=== PATIENT | male | born 1960 | race Caucasian/White ===

== ENCOUNTER 2024-01-22 21:25 | Emergency (ER) | payer BC, OTHER ==
--- NOTE | 2024-01-22 21:28 | ERPHSYRPT ---
- History of Present Illness Time Seen by Provider: 01/22/24 21:27 Historian: patient Exam Limitations: no limitations Physician History: The patient, with a history of multiple heart attacks, colon cancer, COPD, emphysema, and asbestosis, presents with chest pain of 17 days duration. The pain, described as 'lightning,' radiates from the jaw, through the shoulder blade, and down the arm. The pain has worsened today, waking him from sleep. The pain is located around the heart and increases with movement. He also reports nausea and a history of lightheadedness leading to falls. The patient has a history of hypertension and is on medication for high blood pressure and acid reflux. He also reports a history of kidney stones, but denies chronic kidney disease. The patient has a significant smoking history, having smoked three and a half packs a day until quitting approximately five years ago. He now occasionally uses a vaporizer and smokes cigars without inhaling. 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 He has had multiple surgeries, including two hernia repairs, neck surgery following a fall, and arm surgery. He was advised to have open-heart surgery following his last heart attack but declined. He has been told he has a leaky heart valve. The patient also reports a history of [place] spotted fever. Timing/Duration: day(s) (17) Activities at Onset: rest Quality: pressure, sharpness, stabbing Location: substernal Chest Pain Radiation: jaw, back Severity of Pain-Max: moderate Severity of Pain-Current: moderate Modifying Factors: Improves With: nothing. Worsens With: exertion Associated Symptoms: nausea, palpitations, heartburn, shortness of breath, No vomiting, No abdominal pain, No cough Prior Chest Pain/Cardiac Workup: cardiac cath Nitro Today/Relief: no nitro taken today Aspirin Treatment Today: 81 mg x 4, provided by EMS Allergies/Adverse Reactions: Penicillins Allergy (Severe, Verified 01/22/24 21:44) Difficulty Breathing Home Medications: No Reportable Medications [No Reported Medications] 01/22/24 [History] Hx Tetanus, Diphtheria Vaccination/Date Given: Yes Hx Influenza Vaccination/Date Given: Yes Hx Pneumococcal Vaccination/Date Given: Yes - Review of Systems All Other Systems: Reviewed and Negative - Past Medical History Pertinent Past Medical History: Yes Neurological History: No Pertinent History ENT History: No Pertinent History Cardiac History: Angina, Myocardial Infarction (ND) Respiratory History: No Pertinent History Endocrine Medical History: No Pertinent History Musculoskeletal History: No Pertinent History GI Medical History: No Pertinent History History: No Pertinent History Psycho-Social History: No Pertinent History Male Reproductive Disorders: No Pertinent History - Past Surgical History Past Surgical History: Yes Neuro Surgical History: No Pertinent History Cardiac: No Pertinent History Respiratory: No Pertinent History Gastrointestinal: No Pertinent History Genitourinary: No Pertinent History Musculoskeletal: Orthopedic Surgery Male Surgical History: No Pertinent History Other Surgical History: NECK SURGERY - Social History Smoking Status: Current every day smoker How long have you smoked: 40 Exposure to second hand smoke: No Drug Use: none Patient Lives Alone: No - Nursing Vital Signs Nursing Vital Signs: Initial Vital Signs Temperature 98.5 F 01/22/24 21:27 Pulse Rate 81 01/22/24 21:27 Respiratory Rate 18 01/22/24 21:27 Blood Pressure 101/62 01/22/24 21:27 O2 Sat by Pulse Oximetry 96 01/22/24 21:27 Pain Scale Pain Intensity 0 - Physical Exam General Appearance: no apparent distress Eye Exam: eyes nml inspection Ears, Nose, Throat Exam: normal ENT inspection Neck Exam: normal inspection, supple, full range of motion Respiratory Exam: normal breath sounds, lungs clear, airway intact, No chest tenderness, No respiratory distress Cardiovascular Exam: regular rate/rhythm, capillary refill <2 sec, No edema Gastrointestinal/Abdomen Exam: soft, normal bowel sounds, No tenderness, No distention, No mass, No guarding, No rebound Back Exam: normal inspection, No CVA tenderness Extremity Exam: normal inspection, No swelling, No tenderness Neurologic Exam: alert, oriented x 3, cooperative Skin Exam: normal color, warm, dry, No rash SpO2 Interpretation: normal O2 Delivery: Room Air - Course Nursing assessment & vital signs reviewed: Yes EKG Interpreted by Me: RATE (62), Sinus Rhythm, NORMAL AXIS, NORMAL INTERVALS, NORMAL QRS, NORMAL ST-T, Other Ordered Tests: Active Orders 24 hr Category Date Time Status Hazardous Material Specialist STAT Care 01/22/24 21:34 Active EKG-ER Only STAT Care 01/22/24 21:34 Active IV Insertion STAT Care 01/22/24 21:34 Active CTA CHEST W AND/OR WO [CT] Stat Exams 01/22/24 21:35 Completed CBC W DIFF Stat Lab 01/22/24 21:55 Completed CMP Stat Lab 01/22/24 21:55 Completed TROPONIN Q4H Lab 01/22/24 21:55 Completed TROPONIN Q4H Lab 01/23/24 00:34 Completed Urine Triage Profile Stat Lab 01/23/24 00:43 Completed Medication Summary Discontinued Medications Generic Name Dose Route Start Last Admin Trade Name Elizabeth PRN Reason Stop Dose Admin Sodium Chloride 1,000 mls @ 999 mls/hr 01/22/24 21:34 01/22/24 22:00 Sodium Chloride 0.9% 1000 Ml IV 01/22/24 22:34 999 mls/hr .Q1H1M STA Administration Sodium Chloride Confirm 01/22/24 21:59 Sodium Chloride 0.9% 1000 Ml Administered 01/22/24 22:00 Dose 1,000 mls @ ud .ROUTE .STK-MED ONE Lab/Rad Data: Laboratory Result Diagrams 01/22/24 21:55 01/22/24 21:55 Laboratory Results 01/23/24 01/23/24 01/22/24 Range/Units 00:43 00:34 21:55 WBC (4.23-9.07) x10^3/uL RBC (4.63-6.08) x10^6/uL Hgb (13.7-17.5) g/dL Hct (40.1-51.0) % MCV (79.0-92.2) fL MCH (25.7-32.2) pg MCHC (32.3-36.5) g/dL RDW (11.6-14.4) % Plt Count (163-337) x10^3/uL MPV (9.4-12.4) fL Gran % (34.0-67.9) % Immature Gran % (Auto) (0.001-0.429) % Nucleat RBC Rel Count (0.00-0.2) % Eos # (Auto) (0.04-0.54) x10^3/uL Immature Gran # (Auto) (0.001-0.031) x10^3u/L Absolute Lymphs (auto) (1.32-3.57) x10^3/uL Absolute Monos (auto) (0.30-0.82) x10^3/uL Absolute Nucleated RBC (0.00-0.012) x10^3u/L Lymphocytes % (21.8-53.1) % Monocytes % (5.3-12.2) % Eosinophils % (0.8-7.0) % Basophils % (0.2-1.2) % Absolute Granulocytes (1.78-5.38) x10^3/uL Basophils # (0.01-0.08) x10^3/uL Sodium (135-145) mmol/L Potassium (3.5-5.1) mmol/L Chloride (98-107) mmol/L Carbon Dioxide (22-30) mmol/L Anion Gap (5-15) MEQ/L BUN (9-20) mg/dL Creatinine (0.66-1.25) mg/dL Estimated GFR ML/MIN Glucose (74-106) mg/dL Calcium (8.4-10.2) mg/dL Total Bilirubin (0.2-1.3) mg/dL AST (17-59) U/L ALT (0-50) U/L Alkaline Phosphatase (38-126) U/L Troponin I < 0.012 < 0.012 (0.000-0.033) ng/mL Serum Total Protein (6.3-8.2) g/dL Albumin (3.5-5.0) g/dL Urine Opiates Level NEGATIVE (NEGATIVE) Ur Methadone NEGATIVE (NEGATIVE) Urine Barbiturates NEGATIVE (NEGATIVE) Ur Phencyclidine (PCP) NEGATIVE (NEGATIVE) Urine Amphetamine NEGATIVE (NEGATIVE) U Benzodiazepine Level NEGATIVE (NEGATIVE) Urine Cocaine NEGATIVE (NEGATIVE) Urine Marijuana (THC) NEGATIVE (NEGATIVE) 01/22/24 01/22/24 Range/Units 21:55 21:55 WBC 8.0 (4.23-9.07) x10^3/uL RBC 3.96 L (4.63-6.08) x10^6/uL Hgb 13.0 L (13.7-17.5) g/dL Hct 38.3 L (40.1-51.0) % MCV 96.7 H (79.0-92.2) fL MCH 32.8 H (25.7-32.2) pg MCHC 33.9 (32.3-36.5) g/dL RDW 12.7 (11.6-14.4) % Plt Count 295 (163-337) x10^3/uL MPV 9.1 L (9.4-12.4) fL Gran % 59.9 (34.0-67.9) % Immature Gran % (Auto) 0.6 H (0.001-0.429) % Nucleat RBC Rel Count 0.0 (0.00-0.2) % Eos # (Auto) 0.15 (0.04-0.54) x10^3/uL Immature Gran # (Auto) 0.05 H (0.001-0.031) x10^3u/L Absolute Lymphs (auto) 2.00 (1.32-3.57) x10^3/uL Absolute Monos (auto) 0.99 H (0.30-0.82) x10^3/uL Absolute Nucleated RBC 0.00 (0.00-0.012) x10^3u/L Lymphocytes % 24.9 (21.8-53.1) % Monocytes % 12.3 H (5.3-12.2) % Eosinophils % 1.9 (0.8-7.0) % Basophils % 0.4 (0.2-1.2) % Absolute Granulocytes 4.80 (1.78-5.38) x10^3/uL Basophils # 0.03 (0.01-0.08) x10^3/uL Sodium 145 (135-145) mmol/L Potassium 4.6 (3.5-5.1) mmol/L Chloride 107 (98-107) mmol/L Carbon Dioxide 31 H (22-30) mmol/L Anion Gap 11.1 (5-15) MEQ/L BUN 21 H (9-20) mg/dL Creatinine 0.95 (0.66-1.25) mg/dL Estimated GFR 88.8 ML/MIN Glucose 86 (74-106) mg/dL Calcium 9.4 (8.4-10.2) mg/dL Total Bilirubin 0.30 (0.2-1.3) mg/dL AST 23 (17-59) U/L ALT 26 (0-50) U/L Alkaline Phosphatase 84 (38-126) U/L Troponin I (0.000-0.033) ng/mL Serum Total Protein 6.3 (6.3-8.2) g/dL Albumin 3.7 (3.5-5.0) g/dL Urine Opiates Level (NEGATIVE) Ur Methadone (NEGATIVE) Urine Barbiturates (NEGATIVE) Ur Phencyclidine (PCP) (NEGATIVE) Urine Amphetamine (NEGATIVE) U Benzodiazepine Level (NEGATIVE) Urine Cocaine (NEGATIVE) Urine Marijuana (THC) (NEGATIVE) - Progress Progress: improved Air Movement: good Progress Note: Chest Pain New onset of chest pain radiating to the jaw, left shoulder, and arm. Pain is described as sharp and stabbing, with an ache around the heart. Pain is worse with movement and woke the patient from sleep. History of multiple heart attacks, the most recent being 20 years ago. Initial EKG is normal. -Order labs to rule out acute coronary syndrome. -Consider further cardiac workup based on lab results. -CTA chest to r/o aortic dissection COPD/Emphysema Chronic condition, no new symptoms reported. -Continue current management. Hypertension Chronic condition, currently managed with an unspecified antihypertensive medication. -Continue current management. Gastroesophageal Reflux Disease Chronic condition, currently managed with Prilosec. -Continue current management. Chronic Kidney Stones History of recurrent kidney stones, no acute symptoms reported. -Continue current management. General Health Maintenance -Update tetanus vaccine as needed. -Discuss benefits of flu and pneumonia vaccines. -Discuss benefits of COVID-19 vaccine. 01/23/24 01:19 CTA chest neg Troponin neg x 2 Lab evaluation unremarkable Cardiac cause of chest r/o, d/c home with patient f/u. Blood Culture(s) Obtained: No Antibiotics given: No Counseled pt/family regarding: lab results, diagnosis, need for follow-up, rad results Medical Desision Making - Diagnostic Testing Diagnostic test were ordered, analyzed, and reviewed by me: Yes Radiological Interpretation: Interpreted by me, Reviewed by me, Teleradiologist Report - Departure Departure Disposition: Home Clinical Impression: Chest pain Condition: Good Critical Care Time: No Referrals: DOCTOR,NO FAMILY [Primary Care Provider] - Follow up/PCP as directed Instructions: Chest Pain (DC)
[2024-01-22 21:29] VITALS: TEMP 98.5
[2024-01-22] MEDS ORDERED: Sodium Chloride 0.9% 1000 ML 1,000 ML ONE (21:59)
[2024-01-22] MEDS: Sodium Chloride 0.9% 1000 ML 1,000 ML IV STA (22:00)
[2024-01-22 22:15] LABS: BASOPHIL % 0.4 % (0.2-1.2); Basophil (Absolute #) 0.03 x10^3/uL (0.01-0.08); Eosinophil % 1.9 % (0.8-7.0); Eosinophil (Absolute #) 0.15 x10^3/uL (0.04-0.54); Hematocrit 38.3 % (40.1-51.0); IMMATURE GRAN # 0.05 x10^3u/L (0.001-0.031); IMMATURE GRAN % 0.6 % (0.001-0.429); Lymphocytes % 24.9 % (21.8-53.1); Mean Cell Volume 96.7 fL (79.0-92.2); Mean Corpuscular Hemoglobin 32.8 pg (25.7-32.2); Mean Corpuscular Hgb Concent. 33.9 g/dL (32.3-36.5); Mean Platelet Volume 9.1 fL (9.4-12.4); Monocyte (Absolute #) 0.99 x10^3/uL (0.30-0.82); Monocytes % 12.3 % (5.3-12.2); Neutrophil % 59.9 % (34.0-67.9); Platelet Count 295 x10^3/uL (163-337); Red Blood Count 3.96 x10^6/uL (4.63-6.08); Red Cell Distribution Width 12.7 % (11.6-14.4)
[2024-01-22 22:52] LABS: ALBUMIN 3.7 g/dL (3.5-5.0); ANION GAP 11.1 MEQ/L (5-15); BILIRUBIN,TOTAL 0.3 mg/dL (0.2-1.3); Calcium 9.4 mg/dL (8.4-10.2); Creatinine 1 0.95 mg/dL (0.66-1.25); EST GLOMERULAR FILTRATION RATE 88.8 ML/MIN; Potassium 4.6 mmol/L (3.5-5.1); Total Protein 6.3 g/dL (6.3-8.2)
--- NOTE | 2024-01-23 00:12 | XRAY ---
CLINICAL HISTORY: chest pain COMPARISON: None. TECHNIQUE: Contiguous 3.[address] angiographic images of the chest were acquired with the administration of intravenous contrast. Coronal and sagittal reconstructions were obtained. 80 cc [id number] was administered for post-contrast images. One of these 3D techniques was utilized: Maximum Intensity Pixel (MIP), 3D Reconstructed Images, Volume Rendered Images, Surface Shaded Rendering. One of the following dose reduction techniques were utilized for this exam: Automated exposure control, adjustment of the mA and/or kV according to patient size, and use of iterative reconstruction. CTDI: 37.29, DLP: 400.61 FINDINGS: Aorta: The thoracic aorta is normal in caliber. No evidence of an aneurysm or dissection The aortic arch and descending thoracic aorta are unremarkable. There are tiny fibrofatty plaques on the thoracic aorta without stenosis. Pulmonary Arteries: Pulmonary arteries are normal in size and opacification. No evidence of pulmonary embolism. No stenosis or filling defects. Superior Vena Cava (SVC) and Inferior Vena Cava (IVC): Normal opacification and caliber. No evidence of thrombus or obstruction. Coronary Arteries: Coronary arteries are well-opacified. No significant stenosis or atherosclerotic changes. Mediastinum: No mediastinal mass or lymphadenopathy. Normal appearance of the thymus. Heart: Normal size and morphology of the heart. No pericardial effusion. Lungs: Lungs are clear with no evidence of consolidation, nodules, or masses. No pleural effusion or thickening. Bones: No fractures or lytic/sclerotic lesions of the visualized bony structures. Normal alignment and bone density. Soft Tissues: Normal appearance of the visualized soft tissues. No abnormal masses or fluid collections. Included Abdomen: There is mild thickening of the both adrenal galnds. 28 mm cortical cyst note in the right kidney. Other included abdominal organs are unremarkable. IMPRESSION: 1. Normal CT angiography of the chest. 2. No evidence of significant vascular abnormalities. No pulmonary emboli. Electronically Signed by: Xu Ornelas MD. (01/23/2024 00:07:45 EDT)
[2024-01-23 01:02] VITALS: BP 150/92; PULSE 70; RESP 23; O2SAT 98
[2024-01-23 01:05] LABS: Amphetamine,Urine NEGATIVE (NEGATIVE); Barbiturate,Urine NEGATIVE (NEGATIVE); Benzodiazepine,Urine NEGATIVE (NEGATIVE); Cocaine,Urine NEGATIVE (NEGATIVE); Methadone,Urine NEGATIVE (NEGATIVE); Opiate,Urine NEGATIVE (NEGATIVE); PCP,Urine NEGATIVE (NEGATIVE); THC,Urine NEGATIVE (NEGATIVE)
== END 2024-01-23 01:42 | disposition home or self-care (01) ==
LOC: ED 21:25 → EEVIPCON 21:25 → ED 01-23 01:42
DX: R07.9 Chest pain, unspecified (principal); R11.0 Nausea; I25.2 Old myocardial infarction; I10 Essential (primary) hypertension
CPT/HCPCS: 36000; 36415; 71275; 80053; 80307; 84484; 85025; 93005; 93041; 99284